=== PATIENT | male | born 2000 | race Caucasian/White ===

== ENCOUNTER 2023-06-27 22:39 | Emergency (ER) | payer OTHER ==
[~2023-06-27] VITALS: Ht 149.9 cm; Wt 64.0 kg
[2023-06-27 22:55] VITALS: BP 129/65; PULSE 105; RESP 18; TEMP 98.6; O2SAT 97
== END 2023-06-28 03:37 | disposition left against medical advice (07) ==
LOC: ER 22:39
DX: R05.9 Cough, unspecified (principal); Z53.21 Procedure and treatment not carried out due to patient leaving prior to being seen by health care provider
CPT/HCPCS: 71045; 99281